=== PATIENT | male | born 2000 | race Caucasian/White ===

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

== ENCOUNTER 2021-05-12 02:21 | Emergency (ER) | payer OTHER ==
[~2021-05-12] VITALS: Wt 72.6 kg
[~2021-05-12 02:21] MED LIST changes: +PREDNISONE20 M1 PO; +PROVENTIL HFA6.7 GM INH
[2021-05-12] MEDS ORDERED: ERYTHROMYCIN OPH1 GM OPH (02:50)
[2021-05-12] MEDS ORDERED: LACRILUBE S.O.3.5 GM OPH ×2 (02:50→02:57)
== END 2021-05-12 03:33 | disposition home or self-care (01) ==
LOC: ED 02:21
DX: H57.89 Other specified disorders of eye and adnexa (principal)

== ENCOUNTER 2022-02-13 09:06 | Emergency (ER) | payer OTHER ==
[~2022-02-13] VITALS: Ht 172.7 cm; Wt 74.8 kg
[~2022-02-13 09:06] MED LIST changes: +ERYTHROMYCIN OPH1 GM OPH; +LACRILUBE S.O.3.5 GM OPH
== END 2022-02-13 11:17 | disposition home or self-care (01) ==
LOC: ED 09:06
DX: S46.911A Strain of unspecified muscle, fascia and tendon at shoulder and upper arm level, right arm, initial encounter (principal); Z90.89 Acquired absence of other organs; X50.1XXA Overexertion from prolonged static or awkward postures, initial encounter; Y93.89 Activity, other specified; Y92.89 Other specified places as the place of occurrence of the external cause; Y99.8 Other external cause status

== ENCOUNTER 2024-01-22 15:18 | Emergency (ER) | payer OTHER ==
[~2024-01-22] VITALS: Ht 172.7 cm; Wt 74.8 kg
[2024-01-22] MEDS ORDERED: VALTREX1000 MG PO (16:08)
== END 2024-01-22 16:11 | disposition home or self-care (01) ==
LOC: ED 15:18
DX: K12.0 Recurrent oral aphthae (principal); J45.909 Unspecified asthma, uncomplicated; F17.290 Nicotine dependence, other tobacco product, uncomplicated; Z98.890 Other specified postprocedural states